=== PATIENT | female | born 1955 | race Caucasian/White ===

== ENCOUNTER 2016-10-21 15:32 | Inpatient (IN) | payer SELFPAY ==
[2016-10-21] VITALS (8 sets, daily range): BP systolic 119–147; BP diastolic 75–89
[~2016-10-21] VITALS: Ht 162.6 cm; Wt 71.8 kg
[2016-10-21] MEDS ORDERED: SODIUM CHLORIDE 0.9% 1,000ML IVBOLUS ONE (16:30)
[2016-10-21] MEDS ORDERED: SODIUM CHLORIDE FLUSH 10ML SYR IVF ONE (16:30)
[2016-10-21 16:46] LABS: ASPARTATE AMINO TRANSFERASE 16 U/L (15-37); BLOOD UREA NITROGEN 21 mg/dL (7-18)
[2016-10-21] MEDS ORDERED: OMNIPAQUE 350 MG/ML, 100ML BOTTLE ONE (17:19)
[2016-10-21] MEDS ORDERED: PANTOPRAZOLE 40 MG IV IVPush ONE (20:00)
[2016-10-21] MEDS ORDERED: ONDANSETRON 2MG/ML, 2ML IVPush ONE (20:00)
[2016-10-21] MEDS ORDERED: MOVIPREP POWDER 1 PREP KIT PO ONE (21:00)
[2016-10-21] MEDS ORDERED: ONDANSETRON 2MG/ML, 2ML IVPush PRN (22:00)
[2016-10-21] MEDS ORDERED: hydrochlorothiazide (23:40)
[2016-10-21] MEDS ORDERED: benazepril (23:40)
[2016-10-21] MEDS ORDERED: ATOR10TA9 PO (23:40)
[2016-10-21] MEDS ORDERED: FLUT1DIS3 INH (23:40)
[2016-10-22 01:16] VITALS: BP 133/74
[2016-10-22 01:42] VITALS: BP 157/90
[2016-10-22 03:54] LABS: BLOOD UREA NITROGEN 18 mg/dL (7-18)
[2016-10-22 07:42] VITALS: BP 131/86
[2016-10-22] MEDS ORDERED: FENTANYL PF 100 MCG/2ML ONE ×2 (08:35→09:14)
[2016-10-22] MEDS ORDERED: MIDAZOLAM 1 MG/ML, 5ML ONE ×2 (08:35→09:14)
[2016-10-22 10:15] VITALS: BP 146/88
[2016-10-22] MEDS: PANTOPRAZOLE 40 MG IV IVPush SCH ×2 (10:57→19:49)
[2016-10-22 13:19] VITALS: BP 124/62
[2016-10-22] MEDS: ACETAMINOPHEN 325 MG TABLET PO PRN (16:59)
[2016-10-22 18:50] VITALS: BP 147/80
[2016-10-23 00:54] VITALS: BP 115/83
[2016-10-23] MEDS: ACETAMINOPHEN 325 MG TABLET PO PRN (02:27)
[2016-10-23 06:41] VITALS: BP 138/77
[2016-10-23] MEDS: PANTOPRAZOLE 40 MG IV IVPush SCH (08:50)
== END 2016-10-23 09:43 | disposition home or self-care (01) | DRG 378 ==
LOC: ED 16:41 → EDIP 18:21 → 3NW 19:44 → DCLOUNGE 10-23 09:35
PROVIDERS: ADMIT Internal Medicine; ATTEND Internal Medicine
PROC: 0DBH8ZX Excision of Cecum, Via Natural or Artificial Opening Endoscopic, Diagnostic (ICD-10-PCS; principal; 2016-10-21)
PROC: 0DBP8ZX Excision of Rectum, Via Natural or Artificial Opening Endoscopic, Diagnostic (ICD-10-PCS; 2016-10-21)
PROC: 30233N1 Transfusion of Nonautologous Red Blood Cells into Peripheral Vein, Percutaneous Approach (ICD-10-PCS; 2016-10-21)
DX: K57.31 Diverticulosis of large intestine without perforation or abscess with bleeding (principal); D62 Acute posthemorrhagic anemia; I10 Essential (primary) hypertension; J45.909 Unspecified asthma, uncomplicated; K62.1 Rectal polyp; K63.5 Polyp of colon; Z82.0 Family history of epilepsy and other diseases of the nervous system; Z82.49 Family history of ischemic heart disease and other diseases of the circulatory system; Z88.0 Allergy status to penicillin
CPT/HCPCS: 36415; 74177; 80048; 80053; 83605; 83690; 85014; 85018; 85025; 85610; 85730; 86850; 86900; 86923; 87324; 88305; 99152; 99153; 99285; J2250; J2405; J3010; Q9967; C9113; J7030; P9016